=== PATIENT | male | born 2000 | race American Indian/Alaskan Native ===

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

== ENCOUNTER 2019-07-15 17:19 | Emergency (ER) | payer MEDICAID ==
[2019-07-15] MEDS ORDERED: Sodium Chloride 0.9% 10 ML Syringe FLUSH PRN (19:13)
[2019-07-15] MEDS ORDERED: Lidocaine 1% 30 ML SDV INJECT ONE (19:14)
[2019-07-15] MEDS ORDERED: Vancomycin 1.75 GM in Sodium Chloride 0.9% 500 ML IV ONE (19:35)
[2019-07-15] MEDS ORDERED: Bacitracin Oint 1 GM U/D Packet TOP ONE (19:35)
--- NOTE | 2019-07-15 19:41 | EDM.PDOC ---
ED HPI GENERAL MEDICAL PROBLEM - General Chief Complaint: Skin Complaint Stated Complaint: SPIDER BITE Time Seen by Provider: 07/15/19 19:05 Source of Information: Reports: Patient History Limitations: Reports: No Limitations - History of Present Illness INITIAL COMMENTS - FREE TEXT/NARRATIVE: This 18 yo male patient reports to the ED with swelling and drainage from his right elbow. The patient reports he was bitten by a spider about 1 week ago. The patient did go to the clinic and was started on Doxycycline (100 mg BID). The patient report she has been taking his medications as prescribed, but has had an increase in pain and drainage. The patient report the provider did not london the wound. Duration: Day(s):, Constant, Getting Worse Location: Reports: Upper Extremity, Right Quality: Reports: Ache, Dull Severity: Moderate Improves with: Reports: None Worsens with: Reports: None Context: Reports: Other Associated Symptoms: Reports: No Other Symptoms Right Posterior Elbow Pain Score (Numeric/FACES): 7 - Related Data Allergies Allergy/AdvReac Type Severity Reaction Status Date / Time No Known Allergies Allergy Verified 07/15/19 18:15 Home Meds: Home Meds Albuterol [Proventil HFA] 2 puff INH ASDIRECTED PRN 09/30/15 [History] Fluticasone Propionate [Flovent HFA] 2 puff INH BID PRN 09/30/15 [History] Albuterol/Ipratropium [DuoNeb 3.0-0.5 MG/3 ML] 1 ampule INH ASDIRECTED PRN 02/15 [History] Past Medical History - Past Health History Medical/Surgical History: Denies Medical/Surgical History HEENT History: Reports: None Cardiovascular History: Reports: None Respiratory History: Reports: Asthma, Other (See Below) Other Respiratory History: seasonal allergies that require intermittent use of inhalers Gastrointestinal History: Reports: None Genitourinary History: Reports: None Musculoskeletal History: Reports: None, Other (See Below) Other Musculoskeletal History: Fx ankle and hand Neurological History: Reports: None Psychiatric History: Reports: None Endocrine/Metabolic History: Reports: None Hematologic History: Reports: None Immunologic History: Reports: None Oncologic (Cancer) History: Reports: None Dermatologic History: Reports: None Social & Family History - Family History Family Medical History: Noncontributory - Tobacco Use Smoking Status *Q: Never Smoker - Caffeine Use Caffeine Use: Reports: Soda, Tea - Recreational Drug Use Recreational Drug Use: Yes Recreational Drug Type: Reports: Marijuana/Hashish ED ROS GENERAL - Review of Systems Review Of Systems: ROS reveals no pertinent complaints other than HPI. ED EXAM, SKIN/RASH Exam: See Below Exam Limited By: No Limitations General Appearance: Alert, WD/WN, Mild Distress Eye Exam: Bilateral Eye: EOMI, Normal Inspection, PERRL Ears: Normal External Exam, Normal Canal, Hearing Grossly Normal, Normal TMs Nose: Normal Inspection, Normal Mucosa, No Blood Throat/Mouth: Normal Inspection, Normal Lips, Normal Teeth, Normal Gums, Normal Oropharynx, Normal Voice, No Airway Compromise Head: Atraumatic, Normocephalic Neck: Normal Inspection, Supple, Non-Tender, Full Range of Motion Respiratory/Chest: No Respiratory Distress, Lungs Clear, Normal Breath Sounds, No Accessory Muscle Use, Chest Non-Tender Cardiovascular: Normal Peripheral Pulses, Regular Rate, Rhythm, No Edema, No Gallop, No JVD, No Murmur, No Rub GI/Abdominal: Normal Bowel Sounds, Soft, Non-Tender, No Organomegaly, No Distention, No Abnormal Bruit, No Mass (Male) Exam: Deferred Rectal (Males) Exam: Deferred Back Exam: Normal Inspection, Full Range of Motion, NT Extremities: Arm Pain (right elbow swelling, pain and drainage) Neurological: Alert, Oriented, CN II-XII Intact, Normal Cognition, Normal Gait, Normal Reflexes, No Motor/Sensory Deficits Psychiatric: Normal Affect, Normal Mood Skin: Dry, Decubitus, Erythema Location, Skin: Upper Extremity, Right Characteristics: Erythematous Lymphatic: No Adenopathy ED SKIN PROCEDURES - I&D Site: Right elbow Skin Prep: Isopropyl Alcohol (Alcohol) Local Anesthesia: Lidocaine: 1% Plain Local Anesthetic Volume: 3cc Area Incised With: 15 Blade Drainage: Purulent, Bloody, Moderate Amount Probed to Break Up Loculations: Yes Packed With: None Sterile Dressing: Adhesive Dressing Complications: No Course - Vital Signs Last Recorded V/S: Last Vital Signs Temp 37.4 C 07/15/19 18:16 Pulse 67 07/15/19 18:16 Resp 16 07/15/19 18:16 BP 130/75 07/15/19 18:16 Pulse Ox 97 07/15/19 18:16 - Orders/Labs/Meds Orders: Active Orders 24 hr Category Date Time Status CBC WITH AUTO DIFF [HEME] Urgent Lab 07/15/19 19:13 Ordered COMPREHENSIVE METABOLIC PN,CMP [CHEM] Urgent Lab 07/15/19 19:13 Ordered CULTURE BLOOD [BC] Stat Lab 07/15/19 19:13 Ordered LACTIC ACID [CHEM] Stat Lab 07/15/19 19:13 Ordered Lidocaine 1% [Xylocaine-MPF 1%] Med 07/15/19 19:14 Once 30 ml INJECT ONETIME ONE Sodium Chloride 0.9% [Saline Flush] Med 07/15/19 19:13 Ordered 10 ml FLUSH ASDIRECTED PRN Saline Lock Insert [OM.PC] Routine Oth 07/15/19 19:13 Ordered Medication Orders Sodium Chloride (Saline Flush) 10 ml FLUSH ASDIRECTED PRN PRN Reason: Keep Vein Open Meds: Medications Generic Name Dose Route Start Last Admin Trade Name Freq PRN Reason Stop Dose Admin Sodium Chloride 10 ml 07/15/19 19:13 Saline Flush FLUSH ASDIRECTED PRN Keep Vein Open Departure - Departure Time of Disposition: 19:41 Disposition: Home, Self-Care 01 Condition: Fair Clinical Impression: Abscess - Discharge Information *PRESCRIPTION DRUG MONITORING PROGRAM REVIEWED*: Not Applicable *COPY OF PRESCRIPTION DRUG MONITORING REPORT IN PATIENT ROMULO: Not Applicable Instructions: Skin Abscess, [id number] Care Plan Goals: The patient was advised of the examination and lab results during the visit. The patient's abscess was drained while in the ED with a sample of discharge sent to lab for culture. The patient was given a dose of IV Vancomycin while in the ED. The patient was discharged with Keflex (500 mg) #3 to take 1 by mouth 3 times per day and Bactrim DS #2 to take 1 by mouth 2 times per day. The patient was also discharged with a script for Keflex (500 mg) #30 to take 1 by mouth 3 times per day for 10 days and Bactrim DS #20 to take 1 by mouth 2 times per day for 10 days. If the patient has any additional symptoms or concerns, the patient should either return to the emergency department or visit his primary care facility. - My Orders Last 24 Hours: My Active Orders 07/15/19 19:13 CBC WITH AUTO DIFF [HEME] Urgent COMPREHENSIVE METABOLIC PN,CMP [CHEM] Urgent CULTURE BLOOD [BC] Stat LACTIC ACID [CHEM] Stat Sodium Chloride 0.9% [Saline Flush] 10 ml FLUSH ASDIRECTED PRN Saline Lock Insert [OM.PC] Routine 07/15/19 19:14 Lidocaine 1% [Xylocaine-MPF 1%] 30 ml INJECT ONETIME ONE - Assessment/Plan Last 24 Hours: My Active Orders 07/15/19 19:13 CBC WITH AUTO DIFF [HEME] Urgent COMPREHENSIVE METABOLIC PN,CMP [CHEM] Urgent CULTURE BLOOD [BC] Stat LACTIC ACID [CHEM] Stat Sodium Chloride 0.9% [Saline Flush] 10 ml FLUSH ASDIRECTED PRN Saline Lock Insert [OM.PC] Routine 07/15/19 19:14 Lidocaine 1% [Xylocaine-MPF 1%] 30 ml INJECT ONETIME ONE
[2019-07-15 19:47] LABS: ANION GAP 12.7; CHLORIDE,CL 102 mmol/L (101-111); SODIUM,NA 138 mmol/L (135-145)
[2019-07-15] MEDS ORDERED: Sulfamethoxazole/Trimethoprim 800-160 MG Tab ONE (21:25)
[2019-07-15] MEDS ORDERED: Cephalexin 500 MG Cap ONE (21:25)
[2019-07-15 21:36] VITALS: BP 131/55
== END 2019-07-15 21:32 | disposition home or self-care (01) ==
LOC: DL.ED 17:19
DX: L02.413 Cutaneous abscess of right upper limb (principal); J45.909 Unspecified asthma, uncomplicated; Z79.899 Other long term (current) drug therapy
CPT/HCPCS: 10060; 36415; 80053; 83605; 85025; 87040; 87070; 96365; 99283; J2001; J3370; J7040; 87077; 87186

== ENCOUNTER 2019-12-13 09:58 | Day surgery (SDC) | payer MEDICAID, OTHER ==
[~2019-12-13 09:58] MED LIST: Lactated Ringers 1,000 ML IV SCH; Sodium Chloride 0.9% 10 ML Syringe FLUSH PRN; ceFAZolin 2 GM in Premix Bag 1 BAG IV ONE
[2019-12-13] MEDS ORDERED: Propofol 1,000 MG/100 ML SDV IV ONE (09:59)
[2019-12-13] MEDS ORDERED: Lidocaine 1% 30 ML SDV ONE ×2 (09:59→12:02)
[2019-12-13] MEDS ORDERED: Midazolam 1 MG/ML 2 ML SDV IV ONE (09:59)
[2019-12-13] MEDS ORDERED: Propofol 200 MG/20 ML SDV IV ONE (09:59)
[2019-12-13] MEDS ORDERED: Ketorolac 30 MG/ML SDV IVPUSH ONE (09:59)
[2019-12-13] MEDS ORDERED: fentaNYL 100 MCG/2 ML SDV IV ONE (09:59)
[2019-12-13] MEDS ORDERED: Dexamethasone 4 MG/ML SDV IV ONE (09:59)
[2019-12-13] MEDS ORDERED: Bupivacaine 0.5% 30 ML SDV ONE ×2 (09:59→12:01)
[2019-12-13] MEDS ORDERED: Lactated Ringers 1,000 ML IV ONE (09:59)
[2019-12-13] MEDS ORDERED: Lidocaine 1% 30 ML SDV INJECT ONE ×3 (12:54→14:10)
[2019-12-13] MEDS ORDERED: Bupivacaine 0.5% 30 ML SDV INJECT ONE ×3 (12:54→14:10)
[2019-12-13] MEDS ORDERED: propofoL 100 ML ONE (13:03)
[2019-12-13] MEDS ORDERED: Acetaminophen/oxyCODONE 325-5 MG Tab PO PRN (14:38)
--- NOTE | 2019-12-13 14:42 | PCM.OPNOTE ---
- General Post-Op/Procedure Note Date of Surgery/Procedure: 12/13/19 Operative Procedure(s): right foot posterior tibial tendon repair, navicular prominence excision with bone anchor and reattachment of posterior tibial tendon. Pre Op Diagnosis: right foot painful PT tendon with tear and pain at enlarged navicular insertion Post-Op Diagnosis: lisa Anesthesia Technique: Local, MAC Primary Surgeon: Carleen Hernandez Anesthesia Provider: Karl Laureano EBL in mLs: 5 Complications: none Condition: Good Free Text/Narrative:: Pt tolerated procedure well and was transported to recovery with vascular status intact to right LE. Well padded L&U splint with foot in inversion applied to RLE.
[2019-12-13 17:17] VITALS: BP 125/67; PULSE 86
--- NOTE | 2019-12-14 17:31 | OR ---
DATE: 12/13/2019 PREOPERATIVE DIAGNOSIS: Right foot posterior tibial tendon tear with pain at insertion/enlarged navicular bone. POSTOPERATIVE DIAGNOSIS: Right foot posterior tibial tendon tear with pain at insertion/enlarged navicular bone. PROCEDURES PERFORMED: 1. Right foot posterior tibial tendon tear repair. 2. Right foot excision of enlarged navicular with reattachment of posterior tibial tendon with bone anchor. ANESTHESIA: Local MAC with preoperative local block of 10 mL of 1:1 mixture of 1% lidocaine plain and 0.5% Marcaine. TOURNIQUET TIME: 72 minutes, pneumatic ankle tourniquet. ESTIMATED BLOOD LOSS: Minimal. SPECIMEN: None. COMPLICATIONS: None. INDICATIONS: Orion is a 19-year-old male who returned for a right foot/ankle injury. I initially saw him back in 2017 when he had injured that ankle, they did an MRI which showed some problems with the posterior tibial tendon as well as talus fracture. That has all healed, but now he has continued to have pain along the posterior tibial tendon. This has been going on since injury and has never resolved. He states that he is starting to have knee pain due to walking differently. He is worried that his foot has continued to flatten more compared to his other side. The ankle does swell up on him and at the foot, he cannot be on it for more than 4 hours at a time before he has to sit and rest it for the rest of the day. He can no longer do any activities that he used to be able to do such as running and jumping, playing basketball. X-rays of the right foot reveal no signs of fracture, he does have a slightly enlarged navicular. MRI of that right ankle reveals significant flattening of the posterior tibial tendon with surrounding increased signal, healing ATFL and CFL. No signs of fracture. The tendon appears severely thickened along the insertion site of the navicular. The patient voiced good understanding of proposed procedure and possible complications and elects to have surgery at this time. DESCRIPTION OF PROCEDURE: The patient was taken to the operating room lying in supine position. After adequate anesthesia induction as described above, the right foot and ankle were prepped and draped in the usual sterile fashion. A pneumatic high ankle tourniquet was inflated to 225 mmHg. Attention was then directed to the medial ankle and midfoot area where the enlarged navicular bone was palpated, this is where he was having the majority of his pain preoperatively. This was marked out as well as his medial malleolus. An incision was made overlying the bony prominence of the medial navicular and continued to the medial malleolus along the posterior tibial tendon course. Sharp and blunt dissections were performed down to the level of the posterior tibial tendon sheath, being careful to retract all neurovascular structures. The sheath was incised and the posterior tibial tendon was identified. The tendon noted to have synovitis around it, so I did debride that. The tendon was severely flattened and there was a tear starting just distal to the medial malleolus and extending approximately 4 cm. The tear was debrided out and the tendon was re-tubularized with 3-0 nylon. There was also noted to be severe thickening and a hardened area at the insertion site of the posterior tibial tendon just proximal to the prominent navicular bone which felt like a small accessory navicular. This was debrided out and that tendon appeared damaged in the area as well. The damaged tendon was debrided to good healthy tendon and the portion of the tendon that was attached to the prominent navicular was freed. Osteotome and sagittal saw were used to remove the prominent area on the navicular. Fluoroscopy was used to verify adequate resection of the prominent area and proper placement of the bone anchor. A [place] 5.5 mm PEEK bone anchor was placed at the medial navicular, being careful to avoid the joint areas. The suture from the bone anchor was used to reattach the portion of the posterior tibial tendon. Approximately 30% of the tendon was removed from the bone. This was reattached with the suture from the bone anchor with the foot held in an inverted position. The posterior tibial tendon had a good amount of tension to it after it was reattached. The remainder of the tendon appeared healthy. The area was irrigated with copious amounts of sterile saline. The retinaculum was closed with a suture from the bone anchor and the tendon sheath was closed with 3-0 Vicryl. Deep closure was completed with 3-0 Vicryl and skin closure was completed with 4-0 nylon. The area was dressed with Xeroform to the incision site, fluffs, Webril, and a well-padded L and U splint with the foot in inversion to keep pressure off the posterior tibial tendon. The patient tolerated the procedure and anesthesia well and left the operating room for recovery with vascular status intact to the right foot as noted by immediate hyperemia upon deflation of the ankle tourniquet. The patient was then discharged home once he met hospital discharge requirements. [facility] /[id number]
== END 2019-12-13 16:20 | disposition home or self-care (01) ==
LOC: DL.SDS 09:58
PROVIDERS: ATTEND Podiatrist
DX: S86.111A Strain of other muscle(s) and tendon(s) of posterior muscle group at lower leg level, right leg, initial encounter (principal); M65.861 Other synovitis and tenosynovitis, right lower leg; J45.909 Unspecified asthma, uncomplicated; X58.XXXA Exposure to other specified factors, initial encounter; Z91.018 Allergy to other foods; Z91.09 Other allergy status, other than to drugs and biological substances
CPT/HCPCS: A9270-GY; C1713; J0690; J1100; J1885; J2001; J2250; J2704; J3010; J3490; J7120

== ENCOUNTER 2020-11-21 12:20 | Emergency (ER) | payer MEDICAID, OTHER ==
[2020-11-21 13:07] LABS: ANION GAP 15.7 mEq/L (7-13); CHLORIDE,CL 103 mmol/L (98-107); SODIUM,NA 143 mmol/L (136-145)
--- NOTE | 2020-11-21 13:48 | CR ---
PROCEDURE INFORMATION: Exam: XR Chest, 1 View Exam date and time: 11/21/2020 1:33 PM Age: 20 years old Clinical indication: Chest pain TECHNIQUE: Imaging protocol: XR of the chest Views: 1 view. COMPARISON: CR Chest 2V 02/15/2018 11:46 PM FINDINGS: Lungs: Unremarkable. No consolidation. Pleural space: Unremarkable. No pleural effusion. No pneumothorax. Heart/Mediastinum: Unremarkable. No cardiomegaly. Bones/joints: Unremarkable. IMPRESSION: No acute findings.
[2020-11-21 14:59] VITALS: BP 117/69; PULSE 83
--- NOTE | 2020-11-21 16:49 | EDM.PDOC ---
ED HPI GENERAL MEDICAL PROBLEM - General Chief Complaint: Chest Pain Stated Complaint: CHEST PAINS SHORTNESS OF BREATH Time Seen by Provider: 11/21/20 12:40 Source of Information: Reports: Patient, RN, RN Notes Reviewed History Limitations: Reports: No Limitations - History of Present Illness INITIAL COMMENTS - FREE TEXT/NARRATIVE: Patient presents to the ED via personal vehicle for complaints of chest pain and shortness of breath. The patient states he was sitting in a car with his friend who was smoking a "tobacco vape pen" when he suddenly began to experience a sharp pain in his mid-chest. He notes his breathing became labored and he felt chest pressure "...like someone was sitting on my chest." He currently denies chest pain, but notes the pressure and shortness of breath have lingered. He states he feels like he may be anxious due to the smoke in the car, but was uncertain so he presented for evaluation. He denies recent illness, fever, shaking chills, vision changes, palpitations, dyspepsia, nausea, or diarrhea. He states he has taken no medications for this problem and does not take medications daily. He does attest to daily cannabis use; he denies alcohol and tobacco use. - Related Data Allergies Allergy/AdvReac Type Severity Reaction Status Date / Time No Known Allergies Allergy Verified 12/13/19 10:28 Home Meds: Home Meds . [No Known Home Meds] 12/12/19 [History] Past Medical History - Past Health History Medical/Surgical History: Denies Medical/Surgical History HEENT History: Reports: Allergic Rhinitis Cardiovascular History: Reports: Other (See Below) Other Cardiovascular History: ORTHOSTATIC HYPOTENSION Respiratory History: Reports: Asthma, Other (See Below) Other Respiratory History: seasonal allergies that require intermittent use of inhalers Gastrointestinal History: Reports: None Genitourinary History: Reports: None Musculoskeletal History: Reports: Back Pain, Chronic, Other (See Below) Other Musculoskeletal History: Fx ankle and hand Neurological History: Reports: None Psychiatric History: Reports: None Endocrine/Metabolic History: Reports: None Hematologic History: Reports: Anemia Immunologic History: Reports: None Oncologic (Cancer) History: Reports: None Dermatologic History: Reports: None - Infectious Disease History Infectious Disease History: Reports: None - Past Surgical History Head Surgeries/Procedures: Reports: None HEENT Surgical History: Reports: None Cardiovascular Surgical History: Reports: None Respiratory Surgical History: Reports: None GI Surgical History: Reports: None Male Surgical History: Reports: Circumcision Neurological Surgical History: Reports: None Musculoskeletal Surgical History: Reports: None Social & Family History - Family History Family Medical History: No Pertinent Family History - Tobacco Use Tobacco Use Status *Q: Never Tobacco User Second Hand Smoke Exposure: No - Caffeine Use Caffeine Use: Reports: None - Recreational Drug Use Recreational Drug Use: Yes Drug Use in Last 12 Months: Yes Recreational Drug Type: Reports: Marijuana/Hashish ED ROS GENERAL - Review of Systems Review Of Systems: Comprehensive ROS is negative, except as noted in HPI. ED EXAM, GENERAL - Physical Exam Exam: See Below Exam Limited By: No Limitations General Appearance: Alert, WD/WN, No Apparent Distress, Anxious Eye Exam: Bilateral Eye: EOMI, PERRL (4mm), Other (Scleral injection) Throat/Mouth: Normal Inspection, Normal Voice, No Airway Compromise Head: Atraumatic, Normocephalic Neck: Normal Inspection, Supple, Non-Tender, Full Range of Motion. No: Lymphadenopathy (L), Lymphadenopathy (R) Respiratory/Chest: No Respiratory Distress, Lungs Clear, Normal Breath Sounds, No Accessory Muscle Use, Chest Non-Tender Cardiovascular: Normal Peripheral Pulses, Regular Rate, Rhythm, No Edema, No Gallop, No JVD, No Murmur, No Rub Peripheral Pulses: 2+: Radial (L), Radial (R), Dorsalis Pedis (L), Dorsalis Pedis (R) GI/Abdominal: Normal Bowel Sounds, Soft, Non-Tender, No Distention, No Mass, Pelvis Stable (Male) Exam: Deferred Rectal (Males) Exam: Deferred Back Exam: Normal Inspection, Full Range of Motion. No: CVA Tenderness (L), CVA Tenderness (R) Extremities: Normal Inspection, Normal Range of Motion, Non-Tender, Normal Capillary Refill, No Pedal Edema Neurological: Alert, Oriented, CN II-XII Intact, Normal Cognition, Normal Gait, No Motor/Sensory Deficits Psychiatric: Normal Affect, Anxious Skin Exam: Warm, Dry, Intact, Normal Color, No Rash. No: Ecchymosis, Erythema, Jaundice, Mottled, Pallor, Petechiae Course - Vital Signs Last Recorded V/S: Last Vital Signs Temp 98.3 F 11/21/20 14:40 Pulse 83 11/21/20 14:40 Resp 18 11/21/20 14:40 BP 117/69 11/21/20 14:40 Pulse Ox 97 11/21/20 14:40 - Orders/Labs/Meds Orders: Active Orders 24 hr Category Date Time Status EKG Documentation Completion [RC] ASDIRECTED Care 11/21/20 16:39 Active EKG Documentation Completion [RC] STAT Care 11/21/20 12:30 Active B-TYPE NATRIURETIC PEPTIDE,BNP [CHEM] Stat Lab 11/21/20 12:39 Received Labs: Laboratory Tests 11/21/20 11/21/20 11/21/20 Range/Units 12:39 12:39 12:39 WBC 14.2 H (5.0-10.0) 10^3/uL RBC 5.24 (4.6-6.2) 10^6/uL Hgb 15.3 (14.0-18.0) g/dL Hct 45.7 (40.0-54.0) % MCV 87.2 (80-100) fL MCH 29.2 (27.0-34.0) pg MCHC 33.5 (33.0-35.0) g/dL Plt Count 274 (150-450) 10^3/uL Neut % (Auto) 68.4 (42.2-75.2) % Lymph % (Auto) 22.2 (20.5-50.1) % [place] % (Auto) 7.2 (2-8) % Eos % (Auto) 1.8 (1.0-3.0) % Baso % (Auto) 0.4 (0.0-1.0) % D-Dimer, Quantitative < 100 (0-400) ng/mL Sodium 143 (136-145) mmol/L Potassium 3.7 (3.5-5.1) mmol/L Chloride 103 (98-107) mmol/L Carbon Dioxide 28 (21-32) mmol/L Anion Gap 15.7 H (7-13) mEq/L BUN 10 (7-18) mg/dL Creatinine 0.92 (0.70-1.30) mg/dL Est Cr Clr Drug Dosing 139.41 mL/min Estimated GFR (MDRD) > 60 BUN/Creatinine Ratio 10.9 (No establ ref range) Glucose 101 H (74-99) mg/dL Lactic Acid (0.4-2.0) mmol/L Calcium 8.8 (8.5-10.1) mg/dL Magnesium 1.8 (1.8-2.4) mg/dL Total Bilirubin 1.0 (0.2-1.0) mg/dL AST 25 (15-37) U/L ALT 60 (16-63) U/L Alkaline Phosphatase 101 (46-116) U/L Troponin I 0.048 (0.000-0.056) ng/mL C-Reactive Protein 1.0 H (0.0-0.9) mg/dL Total Protein 8.5 H (6.4-8.2) g/dL Albumin 4.6 (3.4-5.0) g/dL Globulin 3.9 Albumin/Globulin Ratio 1.2 TSH, Ultra Sensitive (0.36-3.74) uIU/mL Urine Color (YELLOW) Urine Appearance (CLEAR) Urine pH (5.0-9.0) Ur Specific [place] (1.005-1.030) Urine Protein (NEGATIVE) Urine Glucose (UA) (NEGATIVE) Urine Ketones (NEGATIVE) Urine Occult Blood (NEGATIVE) Urine Nitrite (NEGATIVE) Urine Bilirubin (NEGATIVE) Urine Urobilinogen (0.2-1.0) mg/dL Ur Leukocyte Esterase (NEGATIVE) Urine RBC /HPF Urine WBC (0-5/HPF) /HPF Ur Epithelial Cells (NOT SEEN) /HPF Amorphous Sediment (NOT SEEN) /HPF Urine Bacteria (0-FEW/HPF) /HPF Urine Mucus (NOT SEEN) /LPF Urine Other Urine Trichomonas (NOT SEEN) /HPF Urine Yeast (NOT SEEN) /HPF Urine Opiates Screen (NEGATIVE) Ur Oxycodone Screen (NEGATIVE) Urine Methadone Screen (NEGATIVE) Ur Barbiturates Screen (NEGATIVE) U Tricyclic Antidepress (NEGATIVE) Ur Phencyclidine Scrn (NEGATIVE) Ur Amphetamine Screen (NEGATIVE) U Methamphetamines Scrn (NEGATIVE) Urine MDMA Screen (NEGATIVE) U Benzodiazepines Scrn (NEGATIVE) Urine Cocaine Screen (NEGATIVE) U Marijuana (THC) Screen (NEGATIVE) Ethyl Alcohol < 3 (0) mg/dL SARS-CoV-2 RNA (DASHAWN) (NEGATIVE) 11/21/20 11/21/20 11/21/20 Range/Units 12:39 12:39 13:20 WBC (5.0-10.0) 10^3/uL RBC (4.6-6.2) 10^6/uL Hgb (14.0-18.0) g/dL Hct (40.0-54.0) % MCV (80-100) fL MCH (27.0-34.0) pg MCHC (33.0-35.0) g/dL Plt Count (150-450) 10^3/uL Neut % (Auto) (42.2-75.2) % Lymph % (Auto) (20.5-50.1) % [place] % (Auto) (2-8) % Eos % (Auto) (1.0-3.0) % Baso % (Auto) (0.0-1.0) % D-Dimer, Quantitative (0-400) ng/mL Sodium (136-145) mmol/L Potassium (3.5-5.1) mmol/L Chloride (98-107) mmol/L Carbon Dioxide (21-32) mmol/L Anion Gap (7-13) mEq/L BUN (7-18) mg/dL Creatinine (0.70-1.30) mg/dL Est Cr Clr Drug Dosing mL/min Estimated GFR (MDRD) BUN/Creatinine Ratio (No establ ref range) Glucose (74-99) mg/dL Lactic Acid 1.4 (0.4-2.0) mmol/L Calcium (8.5-10.1) mg/dL Magnesium (1.8-2.4) mg/dL Total Bilirubin (0.2-1.0) mg/dL AST (15-37) U/L ALT (16-63) U/L Alkaline Phosphatase (46-116) U/L Troponin I (0.000-0.056) ng/mL C-Reactive Protein (0.0-0.9) mg/dL Total Protein (6.4-8.2) g/dL Albumin (3.4-5.0) g/dL Globulin Albumin/Globulin Ratio TSH, Ultra Sensitive 0.68 (0.36-3.74) uIU/mL Urine Color Dark yellow (YELLOW) Urine Appearance Clear (CLEAR) Urine pH 6.5 (5.0-9.0) Ur Specific [place] >= 1.030 (1.005-1.030) Urine Protein 100 H (NEGATIVE) Urine Glucose (UA) Negative (NEGATIVE) Urine Ketones 15 H (NEGATIVE) Urine Occult Blood Negative (NEGATIVE) Urine Nitrite Negative (NEGATIVE) Urine Bilirubin Negative (NEGATIVE) Urine Urobilinogen 0.2 (0.2-1.0) mg/dL Ur Leukocyte Esterase Negative (NEGATIVE) Urine RBC 0-5 /HPF Urine WBC Not seen (0-5/HPF) /HPF Ur Epithelial Cells Not seen (NOT SEEN) /HPF Amorphous Sediment Not seen (NOT SEEN) /HPF Urine Bacteria Not seen (0-FEW/HPF) /HPF Urine Mucus Few H (NOT SEEN) /LPF Urine Other Urine Trichomonas Not seen (NOT SEEN) /HPF Urine Yeast Not seen (NOT SEEN) /HPF Urine Opiates Screen (NEGATIVE) Ur Oxycodone Screen (NEGATIVE) Urine Methadone Screen (NEGATIVE) Ur Barbiturates Screen (NEGATIVE) U Tricyclic Antidepress (NEGATIVE) Ur Phencyclidine Scrn (NEGATIVE) Ur Amphetamine Screen (NEGATIVE) U Methamphetamines Scrn (NEGATIVE) Urine MDMA Screen (NEGATIVE) U Benzodiazepines Scrn (NEGATIVE) Urine Cocaine Screen (NEGATIVE) U Marijuana (THC) Screen (NEGATIVE) Ethyl Alcohol (0) mg/dL SARS-CoV-2 RNA (DASHAWN) (NEGATIVE) 11/21/20 11/21/20 11/21/20 Range/Units 13:20 13:30 16:45 WBC (5.0-10.0) 10^3/uL RBC (4.6-6.2) 10^6/uL Hgb (14.0-18.0) g/dL Hct (40.0-54.0) % MCV (80-100) fL MCH (27.0-34.0) pg MCHC (33.0-35.0) g/dL Plt Count (150-450) 10^3/uL Neut % (Auto) (42.2-75.2) % Lymph % (Auto) (20.5-50.1) % [place] % (Auto) (2-8) % Eos % (Auto) (1.0-3.0) % Baso % (Auto) (0.0-1.0) % D-Dimer, Quantitative (0-400) ng/mL Sodium (136-145) mmol/L Potassium (3.5-5.1) mmol/L Chloride (98-107) mmol/L Carbon Dioxide (21-32) mmol/L Anion Gap (7-13) mEq/L BUN (7-18) mg/dL Creatinine (0.70-1.30) mg/dL Est Cr Clr Drug Dosing mL/min Estimated GFR (MDRD) BUN/Creatinine Ratio (No establ ref range) Glucose (74-99) mg/dL Lactic Acid (0.4-2.0) mmol/L Calcium (8.5-10.1) mg/dL Magnesium (1.8-2.4) mg/dL Total Bilirubin (0.2-1.0) mg/dL AST (15-37) U/L ALT (16-63) U/L Alkaline Phosphatase (46-116) U/L Troponin I 0.047 (0.000-0.056) ng/mL C-Reactive Protein (0.0-0.9) mg/dL Total Protein (6.4-8.2) g/dL Albumin (3.4-5.0) g/dL Globulin Albumin/Globulin Ratio TSH, Ultra Sensitive (0.36-3.74) uIU/mL Urine Color (YELLOW) Urine Appearance (CLEAR) Urine pH (5.0-9.0) Ur Specific [place] (1.005-1.030) Urine Protein (NEGATIVE) Urine Glucose (UA) (NEGATIVE) Urine Ketones (NEGATIVE) Urine Occult Blood (NEGATIVE) Urine Nitrite (NEGATIVE) Urine Bilirubin (NEGATIVE) Urine Urobilinogen (0.2-1.0) mg/dL Ur Leukocyte Esterase (NEGATIVE) Urine RBC /HPF Urine WBC (0-5/HPF) /HPF Ur Epithelial Cells (NOT SEEN) /HPF Amorphous Sediment (NOT SEEN) /HPF Urine Bacteria (0-FEW/HPF) /HPF Urine Mucus (NOT SEEN) /LPF Urine Other Urine Trichomonas (NOT SEEN) /HPF Urine Yeast (NOT SEEN) /HPF Urine Opiates Screen Negative (NEGATIVE) Ur Oxycodone Screen Negative (NEGATIVE) Urine Methadone Screen Negative (NEGATIVE) Ur Barbiturates Screen Negative (NEGATIVE) U Tricyclic Antidepress Negative (NEGATIVE) Ur Phencyclidine Scrn Negative (NEGATIVE) Ur Amphetamine Screen Negative (NEGATIVE) U Methamphetamines Scrn Negative (NEGATIVE) Urine MDMA Screen Negative (NEGATIVE) U Benzodiazepines Scrn Negative (NEGATIVE) Urine Cocaine Screen Negative (NEGATIVE) U Marijuana (THC) Screen Positive H (NEGATIVE) Ethyl Alcohol (0) mg/dL SARS-CoV-2 RNA (DASHAWN) Negative (NEGATIVE) - Radiology Interpretation Free Text/Narrative:: [facility] [place] [facility] Final Radiology Report Call: [phone] assistance Online chat: [email or web address] Name: JULIANN MERAZ Age: 20Years M Date: 11/21/2020 SSN: -- : 2000 Study: CR CHEST 1V FRONTAL Requesting Physician: Larissa Castellanos Images: 1 Addl Studies: Provided Clinical History: Chest pain Contrast: Contrast Medium: Contrast Amount: Contrast Method: CONFIDENTIALITY STATEMENT This report is intended only for use by the referring physician, and only in accordance with law. If you received this in error, call [phone]. Page 1 of 1 PROCEDURE INFORMATION: Exam: XR Chest, 1 View Exam date and time: 11/21/2020 1:33 PM Age: 20 years old Clinical indication: Chest pain TECHNIQUE: Imaging protocol: XR of the chest Views: 1 view. COMPARISON: CR Chest 2V 02/15/2018 11:46 PM FINDINGS: Lungs: Unremarkable. No consolidation. Pleural space: Unremarkable. No pleural effusion. No pneumothorax. Heart/Mediastinum: Unremarkable. No cardiomegaly. Bones/joints: Unremarkable. IMPRESSION: No acute findings. Thank you for allowing us to participate in the care of your patient. Dictated and Authenticated by: Lacy Copeland MD 11/21/2020 1:47 PM Central Time ([place] & [place]) - Re-Assessments/Exams Free Text/Narrative Re-Assessment/Exam: 11/21/20 WBC mildly elevated at 14.2. D-dimer normal Troponin WNL, but revealed some elevation. Will hold patient in extended stay and repeat Troponin and EKG. Repeat Troponin WNL. Will discharge patient home. Patient encouraged to establish with a PCP and have a yearly physical. Patient encouraged to refrain from cannabis use. Patient verbalized understanding and agreement with the plan of care. Departure - Departure Time of Disposition: 17:44 Disposition: Home, Self-Care 01 Condition: Good Clinical Impression: Anxiety, Pressure in chest, Tachycardia, Cannabis abuse Instructions: Chest Wall Pain, [id number] Forms: ED Department Discharge Additional Instructions: 1.) Follow up with a primary care provider for ongoing health management. 2.) Drink plenty of fluids to stay hydrated. 3.) Refrain from cannabis use. Sepsis Event Note (ED) - Evaluation Sepsis Screening Result: No Definite Risk - Focused Exam Vital Signs: Vital Signs Temp Pulse Resp BP Pulse Ox 11/21/20 14:40 98.3 F 83 18 117/69 97 11/21/20 12:25 98 F 118 H 18 157/84 H 97 - My Orders Last 24 Hours: My Active Orders 11/21/20 12:30 EKG Documentation Completion [RC] STAT 11/21/20 12:39 B-TYPE NATRIURETIC PEPTIDE,BNP [CHEM] Stat 11/21/20 16:39 EKG Documentation Completion [RC] ASDIRECTED - Assessment/Plan Last 24 Hours: My Active Orders 11/21/20 12:30 EKG Documentation Completion [RC] STAT 11/21/20 12:39 B-TYPE NATRIURETIC PEPTIDE,BNP [CHEM] Stat 11/21/20 16:39 EKG Documentation Completion [RC] ASDIRECTED
== END 2020-11-21 18:00 | disposition home or self-care (01) ==
LOC: DL.ED 12:20
DX: F41.9 Anxiety disorder, unspecified (principal); F12.10 Cannabis abuse, uncomplicated; J45.909 Unspecified asthma, uncomplicated; Z20.822 Contact with and (suspected) exposure to COVID-19
CPT/HCPCS: 36415; 71045; 80053; 80305-QW; 80307; 81001; 83605; 83735; 83880; 84443; 84484; 85025; 85379; 86140; 93005; 93010; 99284; 99285-25; U0002

== ENCOUNTER 2023-10-19 00:03 | Emergency (ER) | payer MEDICAID ==
[2023-10-19 00:36] VITALS: BP 129/79; PULSE 104
[2023-10-19 00:50] LABS: BASOPHILS PERCENT AUTO 0.6 % (1.0-2.0); EOSINOPHILS PERCENT AUTO 0.6 % (1.0-5.0); HEMOGLOBIN 16.5 g/dL (12.0-16.0); LYMPHOCYTES PERCENT AUTO 22.9 % (21.0-51.0); MEAN CORPUSCULAR HEMOGLOBIN 27.8 pg (25.0-35.0); MEAN CORPUSCULAR VOLUME 84.3 fL (78-102); MONOCYTES PERCENT AUTO 6.5 % (2-8); NEUTROPHILS PERCENT AUTO 69.4 % (30.0-70.0); PLATELET COUNT,PLT 376 10^3/uL (150-300); RED BLOOD CELL COUNT 5.93 10^6/uL (4.1-5.3); WHITE BLOOD CELL COUNT,WBC 10.9 10^3/uL (3.5-11.0)
[2023-10-19 01:06] LABS: A/G RATIO 0.9; ALANINE AMINOTRANSFERASE,ALT 123 U/L (16-63); ALBUMIN 3.9 g/dL (3.4-5.0); ALKALINE PHOSPHATASE 193 U/L (46-116); ASPARTATE AMNIOTRANSFERASE,AST 56 U/L (15-37); BILIRUBIN TOTAL 0.3 mg/dL (0.1-1.9); BLOOD UREA NITROGEN,BUN 11 mg/dL (7-18); BUN/CREATININE RATIO 15.1 (No establ ref range); CALCIUM 8.5 mg/dL (8.5-10.1); CARBON DIOXIDE,CO2 21 mmol/L (21-32); CHLORIDE,CL 111 mmol/L (98-107); CREATININE 0.73 mg/dL (0.70-1.30); GLUCOSE RANDOM 172 mg/dL (60-100); MAGNESIUM 2.3 mg/dL (1.8-2.4); PROTEIN TOTAL,TP 8.3 g/dL (6.4-8.2); SODIUM,NA 147 mmol/L (136-145); TSH ULTRASENSITIVE 1.94 uIU/mL (0.36-3.74)
[2023-10-19 01:10] LABS: ETHANOL BLOOD MEDICAL 304 mg/dL (0); LACTIC ACID 2.7 mmol/L (0.4-2.0)
[2023-10-19 01:52] LABS: AMPHETAMINES,URINE NEGATIVE (NEGATIVE); BARBITURATES,URINE NEGATIVE (NEGATIVE); BENZODIAZEPINE,URINE NEGATIVE (NEGATIVE); MDMA (ECSTASY), URINE NEGATIVE (NEGATIVE); METHADONE,URINE NEGATIVE (NEGATIVE); METHAMPHETAMINES,URINE NEGATIVE (NEGATIVE); OPIATES,URINE NEGATIVE (NEGATIVE); OXYCODONE,URINE NEGATIVE (NEGATIVE); PHENCYCLIDINE,URINE NEGATIVE (NEGATIVE); TCA,URINE NEGATIVE (NEGATIVE)
[2023-10-19 01:54] LABS: APPEARANCE,URINE CLEAR (CLEAR); BILIRUBIN,URINE NEGATIVE (NEGATIVE); COLOR,URINE YELLOW (YELLOW); GLUCOSE,URINE NEGATIVE (NEGATIVE); KETONES,URINE NEGATIVE (NEGATIVE); LEUKOCYTE ESTERASE,URINE NEGATIVE (NEGATIVE); NITRITE,URINE NEGATIVE (NEGATIVE); OCCULT BLOOD,URINE SMALL (NEGATIVE); PH,URINE 5.5 (5.0-9.0); PROTEIN,URINE NEGATIVE (NEGATIVE); UROBILINOGEN,URINE 0.2 mg/dL (0.2-1.0)
[2023-10-19] MEDS ORDERED: Lactated Ringers 1,000 ML IV ONE (02:02)
[2023-10-19 02:07] LABS: BACTERIA,URINE FEW /HPF (0-FEW/HPF); EPITHELIAL CELLS,URINE RARE /HPF (NOT SEEN); RBC,URINE 0-5 /HPF (0-5); WBC,URINE 0-5 /HPF (0-5/HPF)
== END 2023-10-19 04:45 | disposition left against medical advice (07) ==
LOC: EDUNIT# → EDBD → DL.ED 00:03
DX: R41.82 Altered mental status, unspecified (principal)
CPT/HCPCS: 36415; 51702; 70450; 72125; 80053; 80305-QW; 80307; 81001; 82140; 83605; 83735; 84443; 85025; 96360; 99284; 99285-25; J7120